=== PATIENT | female | born 1970 | race Caucasian/White ===

== ENCOUNTER 2018-12-25 17:17 | Emergency (ER) | payer OTHER ==
[~2018-12-25] VITALS: Ht 167.6 cm; Wt 104.3 kg
--- NOTE | 2018-12-25 17:20 | NUR ---
Patient to ER bed 2 to gown for evaluation. Side rails up. Triaged at bedside.
[2018-12-25 17:22] VITALS: BP_SYST 179
--- NOTE | 2018-12-25 17:22 | NUR ---
PATIENT CAME IN COMPLAINING OF SHORTNESS OF BREATH SINCE ABOUT 1-2 HOURS AGO. PATIENT STATES SHE HAVING TROUBLE SPEAKING WHERE SHE HAS TROUBLE THINKING WHAT TO SAY. STATES SHE HAS HAD SLURRED SPEECH. NO SLURRED SPEECH AT THE MOMENT. NO SIGNS OF ASYMETRY. PATIENT COMPLAINING OF NAUSEA BUT NO VOMITING. PATIENT DENIES PAIN. PATIENT STATES SHE DRANK RED BULL FOR FISRT TIME SINCE TAKING NEW BP MEDICATION [place]. PATIENT IS ALERT AND ORIENTED X4.
--- NOTE | 2018-12-25 17:27 | NUR ---
ER Dr. Arzate at bedside examining patient.
[2018-12-25] MEDS ORDERED: LORazepam 2 MG/ML VIAL (FOR ER USE) IVP ONE (17:45)
[2018-12-25] MEDS ORDERED: NACL 0.9% 1,000 ML IV ONE (17:45)
--- NOTE | 2018-12-25 17:55 | NUR ---
# 20 gauge angiocath placed to left ac. Use of asceptic technique. Opsite placed over site. Blood return noted. Blood for lab drawn from site. Flushed with 10 cc of normal saline. No evidence of infiltration noted. Patient tolerated well.
--- NOTE | 2018-12-25 18:00 | NUR ---
PATIENT HAS FLUIDS INFUSING. PATIENT REFUSED ATIVAN AT THE MOMENT. SAID SHE WANTS TO WAIT TO SEE IF SHE NEEDS IT.
--- NOTE | 2018-12-25 18:08 | NUR ---
PATIENT GETTING X RAY IN BED.
[2018-12-25 18:11] LABS: BASOPHILS # (AUTO) 0.1 K/uL (0.0-0.2); BASOPHILS % (AUTO) 0.4 % (0.0-2.0); EOSINOPHILS # (AUTO) 0.1 K/uL (0.0-0.4); EOSINOPHILS % (AUTO) 0.7 % (0.0-4.0); HEMOGLOBIN 13.2 g/dL (12.0-16.0); LYMPHOCYTES # (AUTO) 2.4 K/uL (1.0-5.5); LYMPHOCYTES % (AUTO) 18.2 % (20.5-51.5); MEAN CORPUSCULAR HEMOGLOBIN 30 pg (27-31); MEAN CORPUSCULAR HGB CONC 34 % (32-36); MEAN CORPUSCULAR VOLUME 88 fL (79.0-98.0); MONOCYTES % (AUTO) 7.5 % (1.7-9.3); NEUTROPHILS # (AUTO) 9.6 K/uL (1.8-7.7); NEUTROPHILS % (AUTO) 73.2 % (40.0-70.0); PLATELET COUNT (AUTO) 310 K/uL (130-430); RED BLOOD CELL COUNT(AUTO) 4.44 MIL/uL (4.2-6.2); RED CELL DISTRIBUTION WIDTH 13.6 % (9.0-15.0); WHITE BLOOD COUNT (AUTO) 13.1 K/uL (4.8-10.8)
[2018-12-25 18:17] LABS: ANION GAP 12 (5-15); CALCIUM 9.2 mg/dL (8.4-11.0); CHLORIDE 103 mmol/L (98-107); CREATININE 1.09 mg/dL (0.55-1.30); GLUCOSE 176 mg/dL (70-99); POTASSIUM 3.5 mmol/L (3.5-5.1); SODIUM SERUM 140 mmol/L (136-145); UREA NITROGEN, BLOOD 13 mg/dL (8-21)
[2018-12-25 18:21] LABS: GFR AFRICAN AMERICAN 69 mL/min (>90)
[2018-12-25 18:26] LABS: ALANINE AMINOTRANSFERASE 46 U/L (12-78); ALBUMIN 3.2 g/dL (3.4-4.8); ASPARTATE AMINOTRANSFERASE 34 U/L (10-37); TOTAL BILIRUBIN 0.2 mg/dL (0.0-1.0)
--- NOTE | 2018-12-25 18:40 | NUR ---
PATIENT ASKED AGAIN IF SHE WANTS ATIVAN. PATIENT REFUSED ATIVAN. HR DOWN TO 90'S. PATIENT STABLE CONDITION.
[2018-12-25 19:09] VITALS: BP_SYST 145
== END 2018-12-25 19:08 | disposition home or self-care (01) ==
LOC: SED 17:17
DX: T43.611A Poisoning by caffeine, accidental (unintentional), initial encounter (principal); I10 Essential (primary) hypertension; Z88.0 Allergy status to penicillin; Z88.6 Allergy status to analgesic agent; Y92.89 Other specified places as the place of occurrence of the external cause
CPT/HCPCS: 36415; 71045; 80053; 84484; 85025; 93005; 99284; J7030